=== PATIENT | male | born 1945 | race Caucasian/White ===

== ENCOUNTER 2016-07-14 23:31 | Emergency (ER) | payer BC ==
[~2016-07-14 23:31] MED LIST: BENICAR40 PO; MULTIPLE VIT PO; PRISTIQ100 MG PO
[2016-07-18] MEDS ORDERED: NORV5 PO (17:27)
[2016-07-18] MEDS ORDERED: DIOVAN40 MG PO (18:02)
== END 2016-07-15 00:59 | disposition home or self-care (01) ==
LOC: ER 23:31
PROC: 0PSHXZZ Reposition Right Radius, External Approach (ICD-10-PCS; principal; 2016-07-14)
DX: S52.501A Unspecified fracture of the lower end of right radius, initial encounter for closed fracture (principal); W18.30XA Fall on same level, unspecified, initial encounter; I10 Essential (primary) hypertension
CPT/HCPCS: 73110-RT; 96372; 99283; J2405